=== PATIENT | female | born 1990 | race Caucasian/White ===

== ENCOUNTER 2025-02-12 09:54 | Inpatient (IN) | payer OTHER ==
[2025-02-12 10:37] VITALS: BMI 47.5
[2025-02-12 10:45] LABS: Fetal Membranes Rupture RUPTURE DETECTED (No Rupture)
[2025-02-12] MEDS ORDERED: Ondansetron PF 4 MG/2 ML Vial IVP PRN ×5 (10:52→15:33)
[2025-02-12] MEDS ORDERED: Famotidine/PF 20 mg/2ml Vial SLOW IVP PRN (10:52)
[2025-02-12] MEDS ORDERED: Carboprost 250 MCG/ML AMP IM PRN (10:52)
[2025-02-12] MEDS ORDERED: hydrALAZINE 20 MG/ML VIAL SLOW IVP PRN ×2 (10:52→15:33)
[2025-02-12] MEDS ORDERED: Methylergonovine 0.2 MG/ML VIAL IM PRN ×2 (10:52→15:33)
[2025-02-12] MEDS ORDERED: Diphenoxylate HCl/Atropine Tablet PO PRN (10:52)
[2025-02-12] MEDS ORDERED: Bicitra 30 ML UDCUP PO PRN (10:52)
[2025-02-12] MEDS ORDERED: Tranexamic Acid 1,000 MG/10 ML VIAL IVP PRN (10:52)
[2025-02-12] MEDS ORDERED: Azithromycin 500 MG in Sodium Chloride 0.9% 250 ML 250 ML IVPB SCH (11:00)
[2025-02-12] MEDS ORDERED: Oxytocin 30 units/NS 500 ML 500 ML IV SCH ×2 (11:00→15:33)
[2025-02-12 11:35] LABS: Analyzer IN Cardio CS NICU
[2025-02-12 11:36] LABS: Analyzer IN Cardio CS NICU; pH (Cord, venous) 7.355 (7.250-7.350)
[2025-02-12] MEDS ORDERED: diphenhydrAMINE 50 MG/ML VIAL IVP PRN ×2 (12:11)
[2025-02-12] MEDS ORDERED: diphenhydrAMINE 25 MG CAP PO PRN ×2 (12:11→15:33)
[2025-02-12] MEDS ORDERED: Ketorolac Tromethamine 30 MG (1 mL) VIAL IVP PRN (12:11)
[2025-02-12] MEDS ORDERED: diphenhydrAMINE 50 MG/ML VIAL IM PRN (12:11)
[2025-02-12] MEDS ORDERED: Meperidine HCl/PF 25 MG (1 mL) VIAL SLOW IVP PRN (12:11)
[2025-02-12] MEDS ORDERED: Communication Order-Pharmacy FS SCH ×2 (12:15)
[2025-02-12] MEDS ORDERED: fentaNYL Citrate/PF 55 ML IV SCH (12:15)
[2025-02-12] MEDS: HYDROmorphone 0.5 MG/0.5 ML SYRINGE SLOW IVP PRN (12:42)
[2025-02-12 12:45] LABS: Hematocrit 35.0 % (34.9-44.5); Hemoglobin 11.7 g/dL (12.0-15.5); Mean Corpuscular Hemoglobin 28.6 pg (27.0-33.0); Mean Corpuscular Volume 85.6 fL (81.6-98.3); Platelet Count 275 10x3/uL (150-450); Red Blood Cell (RBC) Count 4.09 10x6/uL (3.90-5.03); White Blood Cell (WBC) Count 10.72 10x3/uL (3.5-10.5)
[2025-02-12] MEDS ORDERED: FENTANYL IV SCH (12:45)
[2025-02-12] MEDS ORDERED: ADMIXTURE FEE IV SCH (12:45)
[2025-02-12] MEDS: fentaNYL Citrate/PF 55 ML IV SCH (12:52)
[2025-02-12 13:15] LABS: Hep B Surf Ag - L&D Non-Reactive S/CO (NonReactive)
[2025-02-12 13:17] LABS: Syphilis Antibody Index 0.10 S/CO (<1.00 Non-Reactive)
[2025-02-12] MEDS ORDERED: HYDROcodone/Acetaminophen 5/325 mg Tablet PO PRN (15:33)
[2025-02-12] MEDS ORDERED: Simethicone Chewable 80 MG TAB PO PRN (15:33)
[2025-02-12] MEDS ORDERED: Bisacodyl 10 MG SUPP PR PRN (15:33)
[2025-02-12] MEDS ORDERED: Lanolin Ointment 7 GM TUBE TOP PRN (15:33)
[2025-02-12] MEDS ORDERED: Boostrix 0.5 ML (Tdap) VIAL (>/=7 yrs of age) IM ONE (15:33)
[2025-02-12] MEDS: Oxytocin 10 UNITS/ML VIAL ONE (16:34)
[2025-02-12] MEDS: Lidocaine 1% PF 5 ML VIAL ONE (16:34)
[2025-02-12] MEDS: PROPOFOL 20 ML ONE (16:34)
[2025-02-12] MEDS: CEFAZOLIN 2 GM VIAL ONE (16:34)
[2025-02-12] MEDS: SUCCINYLCHOLINE/SOD CL,ISO/PF 200 MG/10 ML SYRINGE FS ONE (16:34)
[2025-02-12] MEDS: Oxytocin 30 units/NS 500 ML 500 ML ONE (16:35)
[2025-02-12] MEDS: Ketorolac Tromethamine 30 MG (1 mL) VIAL ONE (16:35)
[2025-02-12] MEDS: Famotidine/PF 20 mg/2ml Vial ONE (16:35)
[2025-02-12] MEDS: Enoxaparin 40 MG (0.4 mL) SYRINGE SC SCH (22:43)
[2025-02-13 06:15] LABS: Hematocrit 32.4 % (34.9-44.5); Hemoglobin 10.6 g/dL (12.0-15.5); Mean Corpuscular Hemoglobin 28.3 pg (27.0-33.0); Mean Corpuscular Volume 86.4 fL (81.6-98.3); Platelet Count 264 10x3/uL (150-450); Red Blood Cell (RBC) Count 3.75 10x6/uL (3.90-5.03); White Blood Cell (WBC) Count 14.72 10x3/uL (3.5-10.5)
[2025-02-13] MEDS: Ferrous Sulfate 325 MG TAB PO SCH (06:18)
[2025-02-13] MEDS: Ibuprofen 800 MG TAB PO SCH (10:48)
[2025-02-13] MEDS: Acetaminophen 325 MG TAB PO PRN (14:35)
[2025-02-14 04:18] VITALS: TEMP 98.3
[2025-02-14 07:43] VITALS: BP 102/57
[2025-02-14] MEDS ORDERED: Witch Hazel 100 PAD JAR TOP PRN (11:23)
== END 2025-02-14 16:00 | disposition home or self-care (01) | DRG 788 ==
LOC: CSHLD/OP 09:54 → CSHLD 11:05 → CSHPP 15:23
PROVIDERS: ADMIT Family Medicine; ATTEND Family Medicine
PROC: 10D00Z1 Extraction of Products of Conception, Low, Open Approach (ICD-10-PCS; principal; 2025-02-12)
DX: O34.211 Maternal care for low transverse scar from previous cesarean delivery (principal); Z3A.37 37 weeks gestation of pregnancy; Z37.0 Single live birth; O99.214 Obesity complicating childbirth; E66.813 Obesity, class 3; O24.429 Gestational diabetes mellitus in childbirth, unspecified control
CPT/HCPCS: 36415; 51702; 82805; 84112; 85027; 86780; 86850; 86900; 86901; 87340; 88307; 99285; J1171; J1308; J1650; J1885; J2590; J2704; J3010